=== PATIENT | female | born 1995 | race Caucasian/White ===

== ENCOUNTER 2019-09-10 18:31 | Emergency (ER) | payer OTHER, SELFPAY ==
[2019-09-10 18:45] VITALS: BP 129/80; PULSE 100; RESP 16; TEMP 36.5; O2SAT 99
--- NOTE | 2019-09-10 18:58 | ED.URI ---
HPI - URI/Sore Throat General Chief Complaint: Upper Respiratory Infection Stated Complaint: sore throat, ear pain Time Seen by Provider: 09/10/19 18:58 Source: patient Mode of arrival: ambulatory Limitations: no limitations History of Present Illness HPI Narrative: Jayda Armando is a 23 yo female with PMH of PCOS, high cholesterol, comes to express care with sore throat and fever last week, no fever since Tuesday. Has not responded to ibuprofen, mucinex, and fall and has been able to swallow and drink fluids Related Data Allergies Allergy/AdvReac Type Severity Reaction Status Date / Time metformin Allergy Unknown Verified 11/17/17 08:12 No Known Allergies Allergy Unknown Verified 08/12/16 12:36 Review of Systems Review of Systems: Narrative: CONSTITUTIONAL: Denies fever, chills, sweats. EYES: Denies visual changes, redness, discharge. ENT: Denies rhinorrhea, congestion, has sore throat, has right otalgia. CARDIOVASCULAR: Denies chest pain, palpitations, edema. RESPIRATORY: Denies dyspnea, wheezing, cough GASTROINTESTINAL: Denies abdominal pain, nausea, vomiting, diarrhea. GENITOURINARY: Denies dysuria, hematuria, abnormal discharge SKIN: Denies rash or itching. NEUROLOGIC: Denies numbness, or focal weakness. PSYCHIATRIC: Denies anxiety or depression. PMFSH Family History Family History Sibling Family history of mental disorder Patient's sister is in good health Patient's brother is in good health Father Depression Family history of elevated blood lipids Family history of hypercholesterolemia Mother Hypertension Grandparent Hypertension Family history of elevated blood lipids Family history of dementia, Onset Age: 87 Family history of renal failure Family history of hypercholesterolemia Family history of primary malignant neoplasm of liver Family history of congestive heart failure Family history of osteoporosis Family history of osteoarthritis Social History Social History Smoking status: Never smoker Second hand tobacco smoke exposure: No Alcohol intake: never Gender identity (if verbalized by the patient): Female Comments At time of signature, I agree with nursing past medical, surgical, social and family history. There is no relevant family history pertinent to the presenting complaint. Exam Narrative: Exam Narrative: GENERAL: This is a well-nourished, well-developed patient, in moderate distress. HEAD: normocephalic, atraumatic. EYES: Sclera clear/white. Vision is grossly intact. EARS: External ears normal, L auditory canal clear and without drainage, R is reddened with fluid behind TM. Hearing grossly intact. NOSE: External nose normal without nasal discharge, nares without redness, no rhinorrhea. THROAT: Mucous membranes moist, posterior pharynx eruythema, exudate on L NECK: Neck supple, non-tender CARDIOVASCULAR: Regular rate and rhythm without murmurs, gallops, or rubs. RESPIRATORY: Clear to auscultation. Breath sounds equal bilaterally. No wheezes, rales, or rhonchi. GASTROINTESTINAL: Abdomen soft, SKIN: warm, intact with no suspicious lesions or rash, good texture and turgor. NEURO: awake, alert, and oriented to person, place and time. There were no obvious focal neurologic abnormalities. Steady gait EXTREMITIES: Normal range of motion. BACK: Nontender without deformity Course Course Emergency Course: Strep test negative Started on amoxicillin and eardrops, prednisone for tonsillar edema Vital Signs Vital signs: Vital Signs Temperature 97.7 F 09/10/19 18:45 Pulse Rate 100 09/10/19 18:45 Respiratory Rate 16 09/10/19 18:45 Blood Pressure 129/80 09/10/19 18:45 Pulse Oximetry 99 09/10/19 18:45 Temperature 97.7 F 09/10/19 18:45 Pulse Rate 100 09/10/19 18:45 Respiratory Rate 16 09/10/19 18:45 Blood Pressure 129/80 09/10/19 18
== END 2019-09-10 19:26 | disposition home or self-care (01) ==
PROVIDERS: Emergency Provider Nurse Practitioner; PCP Internal Medicine
DX: J02.9 Acute pharyngitis, unspecified (principal); E28.2 Polycystic ovarian syndrome; E78.00 Pure hypercholesterolemia, unspecified
CPT/HCPCS: 87081; 87880; 99213; G0463

== ENCOUNTER 2019-12-28 08:08 | Emergency (ER) | payer OTHER, SELFPAY ==
[2019-12-28 08:16] VITALS: BP 138/79; PULSE 93; RESP 14; TEMP 36.4; O2SAT 100
--- NOTE | 2019-12-28 08:49 | ED.URI ---
HPI - URI/Sore Throat General Chief Complaint: Upper Respiratory Infection Stated Complaint: tonsilitis Time Seen by Provider: 12/28/19 08:24 Source: patient and RN notes reviewed Mode of arrival: ambulatory Limitations: no limitations History of Present Illness HPI Narrative: Patient presents today with a one-week history of sore throat and cough. The cough is occasionally productive, mild, and has been improving since onset. Denies shortness of breath, fever, difficulty swallowing. She is currently pain-free. She has been taking Mucinex with some relief. She has not tried any other medications for her symptoms prior to arrival. Denies known COVID-19 exposure. 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 Declines influenza test or COVID-19. MD elicited complaint: sore throat Related Data Home Medications Medication Instructions Recorded Confirmed No Home Medications 12/28/19 12/28/19 Allergies Allergy/AdvReac Type Severity Reaction Status Date / Time metformin Allergy Unknown Diarrhea Verified 12/28/19 08:16 Review of Systems Review of Systems: Narrative: CONSTITUTIONAL: Denies body aches, fever, chills, or sweats. EYES: Denies visual changes, redness, or discharge. ENT: Denies rhinorrhea, congestion, or otalgia. + Sore throat CARDIOVASCULAR: Denies chest pain, palpitations, or edema. RESPIRATORY: Denies dyspnea.+ Cough GASTROINTESTINAL: Denies abdominal pain, nausea, vomiting, or diarrhea. GENITOURINARY: Denies dysuria or hematuria. SKIN: Denies rash, itching, or wounds. MUSCULOSKELETAL: Denies back pain, joint pain, or myalgia. NEUROLOGIC: Denies headache, numbness, tingling, or weakness. PSYCH: Denies depression or anxiety. [facility] Family History Family History Sibling Family history of mental disorder Patient's sister is in good health Patient's brother is in good health Father Depression Family history of elevated blood lipids Family history of hypercholesterolemia Mother Hypertension Grandparent Hypertension Family history of elevated blood lipids Family history of dementia, Onset Age: 87 Family history of renal failure Family history of hypercholesterolemia Family history of primary malignant neoplasm of liver Family history of congestive heart failure Family history of osteoporosis Family history of osteoarthritis Social History Social History (Reviewed 11/27/19 @ 10:09 by CISCO Cason Smoking status: Never smoker Second hand tobacco smoke exposure: No Alcohol intake: never Gender identity (if verbalized by the patient): Female Comments At time of signature, I have reviewed and agree with nursing past medical, surgical, social and family history unless otherwise noted. Please see nursing chart for further information. There is no relevant family history pertinent to the presenting complaint Exam Narrative: Exam Narrative: GENERAL: Well-appearing, well-nourished, and in no acute distress. HEAD: Normocephalic, atraumatic. EYES: EOMI. No redness or drainage. Conjunctivae normal. ENT: Mucous membranes pink and moist. Nares clear. No rhinorrhea. TMs normal bilaterally. Throat mildly erythematous. Small amount of exudate on right tonsil. Small amount of postnasal drainage. Uvula midline. NECK: Normal AROM. Supple. No lymphadenopathy. CHEST: No respiratory distress. Clear to auscultation. HEART: Regular rate and rhythm. No murmur appreciated. Normal peripheral pulses. EXTREMITIES: Normal range of motion. No edema. SKIN: Warm, dry, no rash. Capillary refill normal. Normal skin turgor. NEURO: No focal deficits. Alert and oriented x3. Gait steady. PSYCH: Normal affect. No signs of depression or anxiety. Course Vital Signs Vital signs: Vital Signs Temperature 97.6 F 12/28/19 08:16 Pulse Rate 93 12/28/19 08:16 Respiratory Rate 14
== END 2019-12-28 09:13 | disposition home or self-care (01) ==
PROVIDERS: Emergency Provider Nurse Practitioner; PCP Internal Medicine
DX: J02.8 Acute pharyngitis due to other specified organisms (principal)
CPT/HCPCS: 87081; 87880; 99213; G0463

== ENCOUNTER → 2020-11-19 10:55 | Outpatient (CLI) | payer OTHER, SELFPAY ==
--- NOTE | ~2020-11-19 | US_ITS ---
EXAMINATION: US pelvic complete w TV DATE: 11/19/2020 11:22 INDICATION: Pelvic and perineal pain TECHNIQUE: Multiple transabdominal and endovaginal sonographic images of the pelvis were obtained. COMPARISON: 10/28/2015 FINDINGS: The uterus measures 8.1 x 4.1 x 5.8 cm. Nabothian cysts are noted in the cervix. The endome trial complex measures 8 mm. The right ovary measures 3.1 x 2.1 x 3.8 cm. The left ovary measures 3.2 x 3.0 x 2.5 cm. There is normal vascular flow in the ovaries. There is no free fluid in the pelvis. IMPRESSION: 1. No sonographic correlate for the patient's symptoms. Reviewed, dictated and finalized at location A.
== END ==
PROVIDERS: Visit Provider Obstetrics & Gynecology
DX: R10.2 Pelvic and perineal pain (principal)
CPT/HCPCS: 76830; 76856

== ENCOUNTER 2021-02-09 08:30 | Outpatient (RCR) | payer OTHER, SELFPAY ==
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
--- NOTE | 2021-01-27 14:38 | PCPTNOTE ---
Patient called leaving a voicemail to cancel scheduled appointment this date no reason given.
--- NOTE | 2021-02-09 09:12 | PTOPEVAL ---
Physical Therapy Discharge Summar Thank you for referring Jayda Armando to [facility] [place] [facility].? Jayda has attended 7 therapy visits to address her left LE impairments. She demonstrates indep with her HEP at this time. Her goals are partially achieved. See objective measures below for summary of progress. She will DC from skilled therapy services at this time. Please review, sign, date and return this discharge summary GASTON. I agree with and certify that the following plan of care is medically necessary. Referring Physician Date Attending Provider: Mihir Martinez PA-C Problem Diagnosis left lower leg muscle spasm Onset 13 yrs Cause burn Subjective Information She reports her pain has Query Text:As Reported By Patient/ improved with improved Family tightness of left lower leg/ ankle region. She reports improved ability to perform walking with improved walking speed. She is performing HEP every other day. She is not consistently performing a walking or fitness program. Pain Assessment Self Report Pain Assessment Left Lower Lateral Leg(s) Reported Pain Level 0 Pain Description Burning,Tightness Lowest Pain Intensity 0 Greatest Pain Intensity 4 Ankle/Foot Range of Motion Left Ankle Dorsiflexion With Knee Extension 0 active Ankle Plantarflexion Range of Motion - 60 active Ankle Eversion Range of Motion - Active 15 Ankle Eversion Range of Motion - Passive 20 Ankle Inversion Range of Motion - Active 30 Ankle/Toe Range of Motion Limitations Soft Tissue Restriction Foot/Toe Range of Motion Comments great toe ext: 52 dg Lower Extremity Muscle Strength Testing General Lower Extremity Strength Gross Lower Extremity Strength anabella hip abduction: 4/5 heel raises: 15 reps left and 15 reps right Special Tests-Lower Extremity Hip Special Tests Hip Special Test Comments single leg stance: 30 sec anabella with proper control functional squat: improved with cues, able to weight posterior with full range if low mat used for tactile cues. Demo proper LE control with increased trunk flex sit<>stand; = LE WB and position Gait Assessment Gait Pattern Assessment Gait Pattern Observed Decreased Stride Length - Left ,Decreased Stride Length - Right,No Heel Strike - Left,No
== END 2021-02-10 09:20 | disposition home or self-care (01) ==
LOC: ANHPT 08:30
PROVIDERS: Visit Provider Physician Assistant
DX: M62.838 Other muscle spasm (principal)
CPT/HCPCS: 97014; 97110; 97140; 97162; 97530; G0283

== ENCOUNTER 2021-02-27 17:33 | Emergency (ER) | payer OTHER, SELFPAY ==
--- NOTE | ~2021-02-27 | CT_ITS ---
EXAMINATION: CT abdomen pelvis w con EXAM DATE: 02/27/2021 21:27 INDICATION: Abdominal pain. TECHNIQUE: Spiral CT of the abdomen and pelvis was performed following intravenous injection of 100 m L Omnipaque 350. Axial, coronal and sagittal images of the abdomen and pelvis were reviewed. The do se-length product (DLP) for this examination was 1668.12 mGy-cm. The exposure was tailored according to patient size (auto mA exposure control), and iterative reconstruction (ASIR) was used as addition al dose reduction technique. There is no prior study for comparison. FINDINGS: The liver, spleen, adrenal glands and pancreas are unremarkable. Gallbladder is unremarkab le. No biliary obstruction. Portal and splenic veins are patent. Kidneys enhance symmetrically. T here is no hydronephrosis. The uterus and ovaries are unremarkable, no adnexal mass. The bladder i s unremarkable. There is no retroperitoneal or pelvic lymphadenopathy. The appendix is normal. The stomach and small bowel are unremarkable. There is expected amount of c olonic stool. No free intraperitoneal gas. The heart is normal in size. There are no pericardial or pleural effusions. The lung bases are unremarkable. 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 IMPRESSION: 1. No acute intra-abdominal findings. Reviewed, dictated and finalized at location A. SURANCE CLERK
[2021-02-27 17:36] VITALS: BP 149/89; PULSE 135; RESP 20; TEMP 36; O2SAT 100
--- NOTE | 2021-02-27 20:04 | ED.ABDPAIN ---
HPI - Abdominal Pain General Chief Complaint: Abdominal Pain Stated Complaint: LUQ abd pain, nausea Time Seen by Provider: 02/27/21 19:58 Source: RN notes reviewed History of Present Illness HPI narrative: Patient presents emergency room from home for abdominal pain. Patient states since began yesterday. Pain is located left upper abdomen described as aching and sharp in nature. States the pain does not radiate. States is associate with nausea vomiting. She denies any diarrhea she denies any fevers or chills chest pain or shortness of breath. States she not taking pain medic today for the Related Data Home Medications Medication Instructions Recorded Confirmed cholecalciferol (vitamin D3) 25 25 mcg PO DAILY 10/29/20 01/26/21 mcg (1,000 unit) capsule multivitamin 1 tablet PO DAILY 10/29/20 01/26/21 Allergies Allergy/AdvReac Type Severity Reaction Status Date / Time metformin Allergy Unknown Diarrhea Verified 01/22/21 13:03 Review of Systems Review of Systems: Gen.: Denies fevers or chills ENT: Denies congestion Respiratory: Denies shortness of breath or cough CV: Denies chest pain or palpitations GI: See HPI Musculoskeletal: Denies back pain or muscle pain Neuro: Denies numbness, tingling, weakness or focal weakness Skin: Denies rash Except as documented, all other systems reviewed and negative PMFSH Past Medical History Medical History High cholesterol Obesity PCOS (polycystic ovarian syndrome) Surgical History Surgical History [place] teeth removed Family History Family History Sibling Family history of mental disorder Patient's sister is in good health Patient's brother is in good health Father Depression Family history of elevated blood lipids Family history of hypercholesterolemia Mother Hypertension Grandparent Hypertension Family history of elevated blood lipids Family history of dementia, Onset Age: 87 Family history of renal failure Family history of hypercholesterolemia Family history of primary malignant neoplasm of liver Family history of congestive heart failure Family history of osteoporosis Family history of osteoarthritis Social History Social History Smoking status: Never smoker Second hand tobacco smoke exposure: No Alcohol intake: never Gender identity (if verbalized by the patient): Female Exam Narrative: APPEARANCE: No acute distress, nontoxic, resting in bed HEENT: Normocephalic, atraumatic, OMM RESPIRATORY: No respiratory distress, clear to auscultation bilaterally with no rhonchi wheezing or rales CARDIOVASCULAR: RRR s murmur ABDOMINAL: Soft nondistended tender palpation epigastric and left upper quadrant no tenderness right upper quadrant or right lower quadrant left lower quadrant no rebound or guarding MUSCULOSKELETAl: Moves all extremities. No clubbing, cyanosis or edema. NEURO: Awake and alert. Following commands, speech normal, no focal deficits SKIN:: Warm, dry. Normal Color PSYCHIATRIC: Normal affect/mood Course Course Emergency Course: Patient states that they are feeling much better at this time. States abdominal pain has r improved repeat abdominal exam shows the patient's abdomen to be soft with no surgical abdomen present discussed with patient results of workup and diagnosis. Discussed need for follow-up with primary care physician, reasons to return to the emergency department in proper use of medication. Patient understands and agrees to current treatment plan. We discussed possibility of peptic ulcer disease need for follow-up with GI Vital Signs Vital signs: Vital Signs Temperature 96.8 F L 02/27/21 17:36 Pulse Rate 135 H 02/27/21 17:36 Respiratory Rate 20 02/27/21 17:36 Blood Pressure 149/89 H
[2021-02-27] MEDS: KETOROLAC 30 MG/ML VIAL (*BKC) IV PUSH (20:14)
[2021-02-27] MEDS: SODIUM CHLORIDE 0.9% IV 1,000 ML 999 ML IV CONT (20:14)
[2021-02-27] MEDS: FAMOTIDINE 20 MG/2 ML VIAL IV PUSH (20:15)
[2021-02-27 20:31] LABS: Basophils Absolute Auto 0.1 K/mm3 (0.0-0.1); Basophils Percent Auto 0.8 % (0.2-1.2); Eosinophils Absolute Auto 0.2 K/mm3 (0-0.3); Hemoglobin 13.8 g/dL (12.0-15.0); Immature Granulocyte Absolute 0.05 K/mm3 (0.00-0.031); Immature Granulocyte Percent A 0.3 % (0-0.5); Lymphocytes Absolute Auto 5.04 K/mm3 (0.9-3.2); Lymphocytes Percent Auto 32.7 % (18.3-44.2); Mean Corpuscular HGB Conc 32.9 g/dl (32-36); Mean Corpuscular Hemoglobin 28.5 pg (26-34); Mean Corpuscular Volume 86.6 fl (80-100); Mean Platelet Volume 9.3 fl (7.4-10.4); Monocytes Percent Auto 6.7 % (2.6-8.5); Neutrophils Percent Auto 58.5 % (45.5-73.1); Platelet Count Result 358 k/mm3 (150-375); Red Blood Count 4.85 M/mm3 (4.2-5.4); Red Cell Distribution Width 13.5 % (11.5-14.5); White Blood Count 15.4 K/mm3 (4.5-10.0)
[2021-02-27 20:37] LABS: Alanine Aminotransferase 25 U/L (4-35); Albumin Level 4.7 g/dL (3.5-5.1); Alkaline Phosphatase 64 U/L (38-126); Anion Gap 11 mmol/L (8-16); Aspartate Amino Transferase 28 U/L (14-36); Bilirubin,Total 0.3 mg/dL (0.2-1.3); Blood Urea Nitrogen 11 mg/dL (7-17); Calcium 9.5 mg/dL (8.4-10.2); Carbon Dioxide 22 mmol/L (22-30); Chloride 104 mmol/L (98-107); Estimated CRCL calculation 148 ml/min; Estimated Glomerular Filt Rate > 60; Glucose 95 mg/dL (65-110); Lipase 65 U/L (23-300); Sodium 137 mmol/L (137-145)
[2021-02-27 20:38] LABS: Add Urine Microscopic? YES; Appearance Urine Cloudy (Clear); Bacteria Urine Trace /hpf; Bilirubin Urine Negative (Negative); Blood Urine Negative (Negative); Color Urine Yellow (Yellow); Glucose Urine UA Negative (Negative); Ketones Urine Negative (Negative); Leukocyte Esterase Ur Trace LEU/UL (Negative); Mucus Urine Rare /lpf; Nitrate Urine Negative (Negative); Protein Urine Negative (Negative); RBC Urine 21-50 /hpf (0-2); Specific Grav Ur 1.024 (1.001-1.035); Squamous Epithelial Cell Urine Moderate /hpf (Few); Urobilinogen Urine Negative mg/dL (<2.0)
[2021-02-27] MEDS: PANTOPRAZOLE SODIUM IV 40 MG VIAL IV PUSH (21:56)
[2021-02-27] MEDS: NITROFURANTOIN MONOHYD MACROCR 100 MG CAP PO (21:59)
[2021-02-27 22:01] VITALS: BP 138/76; PULSE 78; RESP 18; O2SAT 99
== END 2021-02-27 22:03 | disposition home or self-care (01) ==
PROVIDERS: Emergency Provider Emergency Medicine; PCP Internal Medicine
DX: R10.12 Left upper quadrant pain (principal); E78.00 Pure hypercholesterolemia, unspecified; E66.9 Obesity, unspecified; Z68.41 Body mass index [BMI] 40.0-44.9, adult; E28.2 Polycystic ovarian syndrome
CPT/HCPCS: 36415; 74177; 80053; 81001; 81025; 83690; 85025; 96361; 96374; 96375; 99284; A9270; C9113; J1885; J7030; Q9967

== ENCOUNTER 2021-04-28 00:15 | Day surgery (SDC) | payer BC, SELFPAY ==
[2021-04-16 12:43] VITALS: BMI 43.2
[2021-04-28 09:20] VITALS: BP 135/83; PULSE 108; RESP 20; TEMP 36.9; O2SAT 100; BMI 43.2
[2021-04-28] MEDS: LACTATED RINGERS 1,000 ML 150 ML IV CONT (09:33)
--- NOTE | 2021-04-28 09:54 | PM.HPGS ---
History of Present Illness History of Present Illness Consent: Risks, benefits, and alternatives have been discussed and questions answered. Patient agrees to proceed with procedure. Chief complaint: Left upper quadrant pain Narrative: Jayda Armando is a 25 year old female with luq pain for last couple of months, took protonix for 2 weeks with some relief. She was taking nsaid's but discontinued, occasionally using pepto. CT scan a/p negative. Review of Systems Constitutional: Constitutional: Denies headache(s) and Denies weakness Eyes: Eyes: Denies blurry vision ENT: Reports Normal hearing present, Denies headache(s) and Denies neck pain Cardiovascular: Cardiovascular: Denies chest pain and Denies dyspnea Respiratory: Respiratory: Denies dyspnea Gastrointestinal: Gastrointestinal: Reports no additional gastrointestinal complaints Genitourinary: Genitourinary: Denies dysuria Musculoskeletal: Musculoskeletal: Denies neck pain Integumentary/Breasts: Skin/Breast: Denies dry skin Neurologic: Reports Normal hearing present, Denies headache(s) and Denies weakness Psychiatric: Psychiatric: Denies anxiety Endocrine: Endocrine: Denies change in body appearance Hematologic/Lymphatic: Hematologic/Lymphatic: Denies easy bleeding Allergic/Immunologic: Allergic/Immunologic: Denies urticaria PMFSH Past Medical History Medical History High cholesterol Obesity PCOS (polycystic ovarian syndrome) Surgical History Surgical History [place] teeth removed Family History Family History Sibling Family history of mental disorder Patient's sister is in good health Patient's brother is in good health Father Depression Family history of elevated blood lipids Family history of hypercholesterolemia Mother Hypertension Grandparent Hypertension Family history of elevated blood lipids Family history of dementia, Onset Age: 87 Family history of renal failure Family history of hypercholesterolemia Family history of primary malignant neoplasm of liver Family history of congestive heart failure Family history of osteoporosis Family history of osteoarthritis Social History Social History Smoking status: Never smoker Second hand tobacco smoke exposure: No Alcohol intake: never Substance use type: does not use Living arrangements: with family Gender identity (if verbalized by the patient): Female Spiritual care concerns: No Meds Home Medications and Allergies Home Medications Medication Instructions Recorded Confirmed Type cholecalciferol (vitamin D3) 25 25 mcg PO DAILY 10/29/20 04/28/21 History mcg (1,000 unit) capsule multivitamin 1 tablet PO DAILY 10/29/20 04/28/21 History norethindrone acetate 1 mg-ethinyl 1 tablet PO DAILY #84 tablet 01/22/21 04/28/21 Rx estradiol 20 mcg tablet rosuvastatin 10 mg tablet 10 mg PO DAILY #90 tablet 04/27/21 04/28/21 Rx Allergies Allergy/AdvReac Type Severity Reaction Status Date / Time metformin AdvReac Unknown Diarrhea Verified 04/16/21 12:46 Vital Signs Vital Signs - 24 hr 04/28/21 09:20 Temperature 98.5 F Pulse Rate 108 H Respiratory Rate 20 Blood Pressure 135/83 Pulse Oximetry 100 Exam Const: General: comfortable and no acute distress HENMT: General nose exam: Normal nares present Eyes: General: appearance normal, both eyes and all related structures Neck: Neck: no JVD Resp: Auscultation: clear to auscultation bilaterally Cardio: Rate: regular rate Rhythm: regular rhythm GI: Inspection: non-distended GI Palp: Yes Soft to palpation Skin: General skin exam: normal color Neuro: General: gait normal Speech: normal speech Extrem: General: normal to inspection Psych: Mental Status: me
--- NOTE | 2021-04-28 09:57 | WPDANESEPPF ---
Anes - Initial Pre Proc Eval Procedure: Operation Date: 04/28/21 10:30 Proposed Procedures p Esophagogastroduodenoscopy - Logan Minaya MD Date/Time: 04/28/21 09:57 Surgeon: Logan Minaya MD Pre Op Diagnosis: Left upper quadrant pain Patient Data Age: 25 Gender: F Height: 1.73 m Weight: 128.8 kg Last Vital Signs Temp 98.5 F 04/28/21 09:20 Pulse 108 H 04/28/21 09:20 Resp 20 04/28/21 09:20 BP 135/83 04/28/21 09:20 Pulse Ox 100 04/28/21 09:20 Allergies Allergy/AdvReac Type Severity Reaction Status Date / Time metformin AdvReac Unknown Diarrhea Verified 04/16/21 12:46 Home Medications Medication Instructions Recorded Confirmed Type cholecalciferol (vitamin D3) 25 25 mcg PO DAILY 10/29/20 04/28/21 History mcg (1,000 unit) capsule multivitamin 1 tablet PO DAILY 10/29/20 04/28/21 History norethindrone acetate 1 mg-ethinyl 1 tablet PO DAILY #84 tablet 01/22/21 04/28/21 Rx estradiol 20 mcg tablet rosuvastatin 10 mg tablet 10 mg PO DAILY #90 tablet 04/27/21 04/28/21 Rx Patient hx anesthesia problems: none Family hx anesthesia problems: none Results Review: All pre-operative results and documents have been reviewed as part of the pre-operative evaluation. ON LICENSE OF [facility] Past Medical History Medical History High cholesterol Obesity PCOS (polycystic ovarian syndrome) Surgical History Surgical History [place] teeth removed Family History Family History Sibling Family history of mental disorder Patient's sister is in good health Patient's brother is in good health Father Depression Family history of elevated blood lipids Family history of hypercholesterolemia Mother Hypertension Grandparent Hypertension Family history of elevated blood lipids Family history of dementia, Onset Age: 87 Family history of renal failure Family history of hypercholesterolemia Family history of primary malignant neoplasm of liver Family history of congestive heart failure Family history of osteoporosis Family history of osteoarthritis Social History Social History Smoking status: Never smoker Second hand tobacco smoke exposure: No Alcohol intake: never Substance use type: does not use Living arrangements: with family Gender identity (if verbalized by the patient): Female Spiritual care concerns: No Anes - Eval Final PreProcedure Day of Procedure 04/28/21 09:57 Patient weight: morbidly obese Heart: regular rate and rhythm Lungs: clear to auscultation Airway: Mallampati scale class II Neurological: alert and oriented Last oral intake: >/= 8 hours ASA classification: III Emergent: no Anesthetic plan: proceed Anesthesia type and monitoring: general GIVS and standard monitoring Results Review: All pre-operative results and documents have been reviewed as part of the pre-operative evaluation. Informed Consent: The patient's anesthetic plan and its attendant risks and benefits were discussed with the patient/family/POA. Questions were solicited and answers provided to the satisfaction of the patient/family/POA.
[2021-04-28] MEDS: BENZOCAINE (*SP) 60 ML SPRAY CAN (HURRICAINE) 1 SPRAY MUCOUS MEM (09:59)
[2021-04-28 10:11] VITALS: BP 131/97; PULSE 99; RESP 19; O2SAT 99
[2021-04-28 10:21] VITALS: BP 136/90; PULSE 82; RESP 18; O2SAT 100
[2021-04-28 10:31] VITALS: BP 142/101; PULSE 78; RESP 25; O2SAT 100
== END 2021-04-28 10:43 | disposition home or self-care (01) ==
PROVIDERS: PCP Internal Medicine; Visit Provider Internal Medicine Gastroenterology
PROC: 0DJ08ZZ Inspection of Upper Intestinal Tract, Via Natural or Artificial Opening Endoscopic (ICD-10-PCS; CPT 43235; principal; 2021-04-28 10:30)
DX: R10.12 Left upper quadrant pain (principal); K44.9 Diaphragmatic hernia without obstruction or gangrene; E78.00 Pure hypercholesterolemia, unspecified; E28.2 Polycystic ovarian syndrome; E66.01 Morbid (severe) obesity due to excess calories; Z68.41 Body mass index [BMI] 40.0-44.9, adult
CPT/HCPCS: 43239; 88305; J2704; J7120

== ENCOUNTER 2022-05-13 08:00 | Outpatient (RCR) | payer BC, SELFPAY ==
--- NOTE | 2022-03-03 11:20 | PTOPEVAL1 ---
Assessment and note entered by Milo Kolb PT These treatments will address the objective and functional deficits as defined above. The patient will be advanced safely and appropriately in order for the patient to progress towards his/her prior level of function. Additional exercises will be introduced and as well as a comprehensive home exercise program upon discharge, if needed, ?to ensure carryover of functional gains achieved in the clinic. This treatment plan has been reviewed and agreement upon by the patient.
--- NOTE | 2022-03-03 12:29 | PTOPEVAL1 ---
Assessment and note entered by Milo Kolb, PT Evaluation Information Diagnosis R hip pain with radiating symptoms Onset 2015 Subjective Information Jayda reports that in 2016 she had a pinched nerve that was caused while swimming, since then she has had recurrent exacerbations that will go from her hip up to her back and down to the mid cruz. She did see a hip specialist when it first happened and did not give according to her a specific diagnosis, but reports the R hip has a small acetabular head than the L side. She reports some days she will be fine and some days she will be unable to stand for more than a couple minutes. She does not recall any specific triggers to cause the pain to start. Reported Pain Level Pain Score 0: Self Report Assessment PT Clinical Summary Jayda is a 26 year old female coming into the clinic with intermittent R hip pain. Patient has tight JENNIFER piriformis and weak hip abductors and extensors. The tight piriformis might be pressing on the sciatic nerve causing the radiating symptoms. I think the patient will benefit from skilled physical therapy to stretch out her piriformis and strengthen other hip musculature to help keep the hip joint in better alignments Plan of Care Interventions Electrical Stimulation,Gait Training,Hot Pack/Cold Pack,Manual Therapy,Neuro Re-education,Patient/ Caregiver Education,Therapeutic Activities, Therapeutic Exercise,Ultrasound PT Services Indicated Yes Treatment Frequency and 1x/wk for 4 weeks Duration These treatments will address the objective and functional deficits as defined above. The patient will be advanced safely and appropriately in order for the patient to progress towards his/her prior level of function. Additional exercises will be introduced and as well as a comprehensive home exercise program upon discharge, if needed, ?to ensure carryover of functional gains achieved in the clinic. This treatment plan has been reviewed and agreement upon by the patient.
--- NOTE | 2022-04-15 19:14 | PTOPREEVAL ---
Assessment and note entered by Milo Kolb, PT Evaluation Information Assessment Status Re-evaluation Diagnosis Calcific tendinitis of the L shoulder Onset 3 years ago Subjective Information Patient reports the R hip pain has substantially improved and know she has a new script for the L shoulder. She reports she has been having issues with the L shoulder for three years. Especially painful lying on that side when trying to sleep and pain in the back of the shoulder and along the upper trap. Clinical summary Jayda is a 26 year old female coming in originally for R hip pain, which she reports has improved greatly. She has a new script for L shoulder pain. Her shoulder appears to have a tight posterior capsule along with weakness and pain in the rotator cuff with MMT. Physical therapy will focus on the L shoulder pain and leave the hip for her HEP. Physical therapy will work on strengthening of her shoulder and scapula to improve posture and stretching of posterior capsule to improve movement. Modalities and manual therapy as needed for pain. These treatments will address the objective and functional deficits as defined above. The patient will be advanced safely and appropriately in order for the patient to progress towards his/her prior level of function. Additional exercises will be introduced and as well as a comprehensive home exercise program upon discharge, if needed, ?to ensure carryover of functional gains achieved in the clinic. This treatment plan has been reviewed and agreement upon by the patient.
--- NOTE | 2022-05-13 11:01 | PTOPDC ---
Assessment and note entered by Milo Kolb, PT Evaluation Information Assessment Status Discharge Diagnosis Calcific tendinitis of the L shoulder Onset 3 years ago Subjective Information Patient reports that she is still having pain in the L shoulder mainly around the spine of her scapula, her biceps and below the clavicle. She does report it is worst with reaching overhead, and sleeping on her L side. Patient does admit to increased range of motion and strength. Has an orthopedic appointment in 2 weeks. Reported Pain Level Pain Score 4: Self Report Assessment PT Clinical Summary Jayda is a 26 year old female coming to the clinic for L shoulder pain. She has shown improved strength, but still has severe pain in the L shoulder. Patient is seeing her orthopedic doctor in 2 weeks and getting an injection. Recommend to discharge for now with HEP and have the orthopedic doctor give the injection and possible MRI then write for new orders to work on scapular and rotator cuff strengthening after the injection for reduced pain with physical therapy. Plan of Care PT Services Indicated No Treatment Frequency and discharged from skilled physical therapy. Duration
== END 2022-05-13 11:45 | disposition home or self-care (01) ==
LOC: ANHPT 08:00
PROVIDERS: PCP Internal Medicine; Visit Provider Internal Medicine
DX: M54.9 Dorsalgia, unspecified (principal); R20.0 Anesthesia of skin
CPT/HCPCS: 97014; 97110; 97140; 97161; 97530; G0283

== ENCOUNTER 2022-05-24 17:55 | Outpatient (CLI) | payer BC, SELFPAY ==
--- NOTE | ~2022-05-24 | CT_ITS ---
EXAMINATION: CT abdomen pelvis wo con DATE: 05/24/2022 18:17 INDICATION: Left lower quadrant abdominal pain since December 2021 TECHNIQUE: Computed tomography (CT) of the abdomen and pelvis was performed without intravenous contr ast. Automated exposure control and iterative reconstruction technique were employed. Exam dose: 151 6.44 mGy-cm total exam DLP. COMPARISON: 02/27/2021 CT abdomen pelvis FINDINGS: The lung bases are clear. Normal heart size. No pericardial or pleural effusion. The liver, gallbladder, bile ducts, pancreas, pancreatic duct and spleen are unremarkable. Normal morphology of the adrenal glands. No renal mass lesion or urinary tract calculus or hydroureteronephrosis. The urinary bladder, uterus and adnexal areas are unremarkable. Normal caliber of the abdominal aorta. No intraperitoneal or retroperitoneal or pelvic mass lesion or adenopathy or ascites. Normal appendix. No bowel obstruction, bowel wall thickening, pneumatosis or intraperitoneal free air . There are bilateral L4 pars interarticularis defects with grade 1 anterolisthesis at L4-5. Moderate degenerative disc disease at L4-5 and L5-S1. Mild degenerative spurring of the thoracic spin e. No suspicious osteolytic or osteoblastic lesions. IMPRESSION: Bilateral L4 pars interarticularis defects with associated grade 1 anterolisthesis at L4 -5 Reviewed, dictated and finalized at [facility]. Reviewed, dictated and finalized at [facility]. SERVICER IMPRESSION: Bilateral L4 pars interarticularis defects with associated grade 1 anterolisthesis at L4-5
== END 2022-05-24 17:56 | disposition home or self-care (01) ==
PROVIDERS: PCP Internal Medicine; Visit Provider Physician Assistant
DX: R10.9 Unspecified abdominal pain (principal)
CPT/HCPCS: 74176

== ENCOUNTER 2022-08-04 11:00 | Outpatient (RCR) | payer BC, SELFPAY ==
--- NOTE | 2022-06-10 16:58 | PTOPEVAL1 ---
Assessment and note entered by Milo Kolb, PT Evaluation Information Assessment Status Evaluation Diagnosis R shoulder pain Subjective Information Patient has been coming to therapy for L ankle, R hip, L shoulder pain prior to the R shoulder and has had JENNIFER injections in both shoulder which she reports was great for a few days, but on Tuesday she went to a football game and with all of the clapping has increased pain on the R side. She reports she is still having trouble with sleeping and has been doing her exercises, but she has so many to do right now that she needs a more concise session in order to do them. Still trying to work on posture throughout the day. Assessment PT Clinical Summary Jayda is a 26 year old female coming into the clinic for JENNIFER shoulder pain, which she reports post injection is just the R shoulder. She has rounded shoulders, forward head, tight upper traps , levator scapulae, and pectoralis major. shoulder range of motion is WFL as is strength, but does have weak scapular strength. Physical therapy will work on getting the shoulders in better alignment with stretches and scapular strengthening. Modalities and manual therapy used as needed for pain. Plan of Care Interventions Electrical Stimulation,Gait Training,Hot Pack/Cold Pack,Manual Therapy,Neuro Re-education,Patient/ Caregiver Education,Therapeutic Activities, Therapeutic Exercise,Ultrasound Other Interventions taping, cupping PT Services Indicated Yes Treatment Frequency and 1-2x/wk for 4 weeks Duration These treatments will address the objective and functional deficits as defined above. The patient will be advanced safely and appropriately in order for the patient to progress towards his/her prior level of function. Additional exercises will be introduced and as well as a comprehensive home exercise program upon discharge, if needed, ?to ensure carryover of functional gains achieved in the clinic. This treatment plan has been reviewed and agreement upon by the patient.
--- NOTE | 2022-06-28 09:49 | PCPTNOTE ---
Patient called & cancelled scheduled appointment this date due to not feeling well.
--- NOTE | 2022-07-07 10:49 | PTOPPROG ---
Assessment and note entered by Milo Kolb, PT Evaluation Information Assessment Status Progress Diagnosis L shoulder pain Subjective Information Reports improvement in over all symptoms, but unable to lie on her L side to sleep. Has an HEP that is more concise to allow for continued working on the L ankle and R hip. Assessment PT Clinical Summary Jayda is a 26 year old female coming into the clinic with a diagnosis of L shoulder calcification tendonitis. She was evaluated on 06/09/22 and has attended 7 sessions with 1 cancelation. Patient has made improvements with scapular strengthening besides L lower traps, decreased tightness in upper traps, but not pecs, and reports decrease in pain, but still unable to lie on her L side when attempting to sleep. Would like to continue to work on stretching and strengthening until her next MD appointment in the beginning of July. Plan of Care Interventions Electrical Stimulation,Gait Training,Hot Pack/Cold Pack,Manual Therapy,Neuro Re-education,Patient/ Caregiver Education,Therapeutic Activities, Therapeutic Exercise,Ultrasound Other Interventions taping, cupping, IASTM PT Services Indicated Yes Treatment Frequency and 1-2x/wk for 4 weeks Duration These treatments will address the objective and functional deficits as defined above. The patient will be advanced safely and appropriately in order for the patient to progress towards his/her prior level of function. Additional exercises will be introduced and as well as a comprehensive home exercise program upon discharge, if needed, ?to ensure carryover of functional gains achieved in the clinic. This treatment plan has been reviewed and agreement upon by the patient.
--- NOTE | 2022-08-04 11:25 | PTOPDC ---
Assessment and note entered by Milo Kolb, PT Evaluation Information Assessment Status Discharge Diagnosis JENNIFER shoulder pain Subjective Information Patient overall she is a lot better able to lay on the R side to sleep and pain at worst 2/10. Patient knows she needs to keep up with her exercises. Reported Pain Level Pain Score 1: Self Report Assessment PT Clinical Summary Jayda is a 26 year old female coming into the clinic with a diagnosis of JENNIFER shoulder pain. Patient was evaluated on 06/09/22 and has attended 12 sessions. The patient has met her pain and strength goals, but still has tightness in her pec major. Patient is okay with discharge from physical therapy while keeping her HEP routine as she wants a break from therapy. Plan of Care PT Services Indicated No
== END 2022-08-05 10:38 | disposition home or self-care (01) ==
LOC: ANHPT 11:00
PROVIDERS: PCP Physician Assistant; Visit Provider Physician Assistant Surgical
DX: M75.32 Calcific tendinitis of left shoulder (principal); M75.31 Calcific tendinitis of right shoulder; M54.9 Dorsalgia, unspecified
CPT/HCPCS: 97110; 97140; 97161

== ENCOUNTER 2024-11-16 10:21 | Outpatient (CLI) | payer BC, SELFPAY ==
--- NOTE | 2024-11-16 10:32 | ECG_ITS ---
Test Date: 2024-11-16 10:46:29 Measurements Intervals [place] Rate: 87 P: 37 WA: 149 QRS: 42 QRSD: 84 T: 34 QT: 344 QTc: 415 Interpretive Statements SINUS RHYTHM MINIMAL Q WAVES- INFERIOR LEADS BASELINE ARTIFACT- I, II, III, AVR, AVL, AVF, V1-V6 BORDERLINE ECG No previous ECG available for comparison Electronically Signed On 11-16-2024 11:13:04 CDT by Britton Alarcon D.O.
--- OUTSIDE RECORDS SUMMARY | 2024-11-16 10:35 | XMS_ITS | Clinical Summary ---
Author Organization [facility] Address [address] [place] [address] Phone Care Team Providers Care Extractive Metallurgist Name Role Phone MindyTyler Carloz DHALIWAL Primary Care Provider Allergies No known active allergies Medications fluticasone (FLONASE) 50 MCG/ACT Suspension 1-2 Sprays by Nasal route daily. Use in each nostril as directed. 1 Bottle 06/21/2017 Active Active Problems No known active problems Immunizations Immunization Administration Dates Next Due Covid-19, Mrna, Lnp-s, PF, 1 00 mcg/0.5 mL Dose (Moderna) 04/28/2020,04/01/2020 Influenza Vaccine, Quadrivalent, PF 12/29/2022,1 ,05/19/2020 Influenza,Split Virus,Trivalent,Injectable,PF 11/29/2023 Social History Tobacco Use Types Packs/Day Years Used Date Smoking Tobacco: Never Smokeless Tobacco: Never Alcohol Use Standard Drinks/Week Comments No 0 (1 standard drink = 0.6 oz pur e alcohol) Comments No Sex and Gender Information Value Date Recorded Sex Assigned at Not on file Legal Sex Female 9:26 PM CDT Gender Identity Not on file Sexual Orientation Not on file Last Filed Vital Signs Vital Sign Reading Time Taken Comments Blood Pressure 120/84 06/21/2017 8:00 AM CDT Pulse 88 06/21/2017 8:00 AM CDT Temperature 36.6 C (97.9 F) 06/21/2017 8:00 AM CDT Respiratory Rate 16 06/21/2017 8:00 AM CDT Oxygen Saturation 97% 06/21/2017 8:00 AM CDT Inhaled Oxygen Concentration - - Weight 121.1 kg (267 lb) 06/21/2017 8:00 AM CDT Height 172.7 cm (5' 8) 06/21/2017 8:00 AM CDT Body Mass Index 40.6 06/21/2017 8:00 AM CDT Plan of Treatment Health Maintenance Due Date Last Done Comments Hepatitis C Virus (HCV) Screening 1994 TdaP Immunization 1994 Hepatitis B Immunization (1 of 3 - 19+ 3-dose series) 2013 Human Papillomavirus (HPV) Immunization (1 - 3-dose SCDM series) 2021 SARS-COV-2 Immunization ( season) 2023 07/08/2021, 04/28/2020, 04/01/2020 Influenza Immunization (#1) 11/19/202411/19, 12/29/2022, 01/14/2022, Additional history exists Respiratory Syncytial Virus (RSV) Immunization (Adult) (1 - 1-dose 75+ series) 2069 Meningococcal Immunization (ACWY) Aged Out No longer eligible based on patient's age to complete this topic Pneumococcal Immunization Combined Aged Out No longer eligible based on patient's age to complete this topic Rotavirus Immunization Aged Out No lo nger eligible based on patient's age to complete this topic Care Teams Extractive Metallurgist Relationship Specialty Start Date End Date Tyler Guillen DO [address] [place] [address] PCP - General Internal Medicine 06/21/17
--- OUTSIDE RECORDS SUMMARY | 2024-11-16 10:35 | XMS_ITS | Patient Health Record ---
Author Organization [facility] Address [address] [facility] [address] [place] [address] Care Team Providers Care Prom Burn Off Operator Name Role Phone Leela Garcia Unavailable [phone] Reason For Referral No Information Medications Medication SIG (Take, Route, Frequency, Duration) Notes Start Date End Date Status Norethindrone Acet-Ethinyl Est 1-20 MG-MCG Tablet Oral Activ e Cyclobenzaprine HCl 10 MG Tablet Oral Active Rosuvastatin Calcium 10 MG Tablet Oral Active Terbinafine HCl 250 MG Tablet Oral Active predniSONE 20 MG Tablet Oral Active Social History Social History Additional Details Category Social Info Options Details Migrated Social History Migrated Social History Tobacco Years: Never smoker 03/31/2023 Plan Of Treatment No Information Insurance Providers Payer Name Payer Address Payer Phone Subscriber Number Group Number Insured Name Patient Relationship to Insured Coverage Start Date Coverage End Date [facility] [address] [place] [address] [id number] SHALONDA ALLEN Self - patient is the insured
--- OUTSIDE RECORDS SUMMARY | 2024-11-16 10:35 | XMS_ITS | Clinical Summary ---
Author Organization [facility] Address [facility] [place] [address] Care Team Providers Care Radial Drill Press Operator For Plastic Name Role Phone None, Provider MD Primary Care Provider Unavaila ble Allergies Active Allergy Reactions Criticality Noted Date Comments Metformin Diarrhea Low 03/30/2020 Medications No known medications Active Problems No known active problems Social History Tobacco Use Types Packs/Day Years Used Date Smoking Tobacco: Never Smokeless Tobacco: Never Alcohol Use Standard Drinks/Week Comments Never 0 (1 standard drink = 0.6 oz pur e alcohol) AUDIT-C Answer Date Recorded Q1: How often do you have a drink containing alc ohol? Never 03/30/2020 Average Number of Drinks Not on file 021 Frequency of Binge Drinking Not on file 03/21 Comments No Sex and Gender Information Value Date Recorded Sex Assigned at Not on file Legal Sex Female 8:51 PM CDT Gender Identity Not on file Sexual Orientation Not on file Last Filed Vital Signs Vital Sign Reading Time Taken Comments Blood Pressure 141/93 03/30/2020 6:15 PM CUSTOMER RELATIONS REPRESENTATIVE Pulse - - Temperature - - Respiratory Rate - - Oxygen Saturation 100% 03/30/2020 6:15 PM CUSTOMER RELATIONS REPRESENTATIVE Inhaled Oxygen Concentration - - Weight - - Height - - Body Mass Index - - Plan of Treatment Health Maintenance Due Date Last Done Comments Cervical Cancer Screening Pa p Smear (Age 21 to 29) Every 3 Years 1994 Cervical Cancer Screening 1994 Annual Physical 1997 Hepatitis C 2012 DTaP, Tdap and Td Vaccines ( 1 - Tdap) 2013 Hepatitis B Vaccines (1 of 3 - 19+ 3-dose series) 2013 HPV Vaccines (1 - 3-dose SCD M series) 2021 COVID-19 Vaccine (2023-2 5 season) 2023 Meningococcal B Vaccine Aged Out No l onger eligible based on patient's age to complete this topic Meningococcal Vaccine Aged Out No heather kandi eligible based on patient's age to complete this topic Pneumococcal Vaccine: Pediat rics (0 to 5 Years) and At-Risk Patients (6 to 49 Years) Aged Out No longer eligible b ased on patient's age to complete this topic RSV Immunizations Under 20 Months Aged Out No longer eligible based on patient's age to complete this topic Insurance [employer] Care Teams Radial Drill Press Operator For Plastic Relationship Specialty Start Date End Date None, Provider, PCP - General 03/30/20
[2024-11-16 12:22] LABS: Hematocrit 38.9 % (37.0-47.0); Hemoglobin 12.1 g/dL (12.0-15.0); Immature Granulocyte Percent A 0.4 % (0-0.5); Lymphocytes Absolute Auto 3.35 K/mm3 (0.9-3.2); Mean Corpuscular HGB Conc 31.1 g/dl (32-36); Mean Corpuscular Hemoglobin 25.6 pg (26-34); Mean Corpuscular Volume 82.4 fl (80-100); Nucleated Red Blood Cells Absolute Auto 0.000 K/mm3 (0.0-0.012); Nucleated Red Blood Cells Perc 0.0 % (0.0-0.2); Platelet Count Result 350 k/mm3 (150-375); Red Blood Count 4.72 M/mm3 (4.2-5.4); White Blood Count 10.6 K/mm3 (4.5-10.0)
== END 2024-11-16 10:22 | disposition home or self-care (01) ==
LOC: ANHSURGERY 10:28
PROVIDERS: PCP Internal Medicine; Visit Provider Surgery
DX: Z01.818 Encounter for other preprocedural examination (principal); K60.2 Anal fissure, unspecified; E78.00 Pure hypercholesterolemia, unspecified
CPT/HCPCS: 36415; 85025; 93005

== ENCOUNTER 2024-11-21 01:17 | Day surgery (SDC) | payer BC, SELFPAY ==
[2024-11-13 08:33] VITALS: BMI 45.7
--- NOTE | 2024-11-13 08:33 | PC.NURSE ---
Addendum entered by Vinay Christiansen RN 11/13/24 08:56: Patient says she was instructed already by office to take laxatives and enemas and clear liquids only the day before surgery. Original Note: Report to the Outpatient Waiting Room, entrance under the green pavilion located off [facility], at time _0700_ on date _[id number]_. Planned Procedure Time: _0900_.? Time changes happen often and if your time is changed the preop area will call you the afternoon before. - You and your visitor will be asked to self-screen and do not enter if you have any COVID symptoms. Please call surgeon if you need to reschedule. - A mask is optional within the hospital at this time. Patients may have clear liquids (water, carbonated beverages, clear teas, apple juice) until 3 hours prior to surgery with a maximum of 20 ounces. - No food from midnight until time of surgery and no smoking, or chewing tobacco (or any form of nicotine). No chewing gum, candy or mints. Take only the following medications with a SIP of water on the morning of surgery: DO NOT STOP ANY OF YOUR OTHER PRESCRIPTION MEDICATIONS PRIOR TO SURGERY EXCEPT THE FOLLOWING Hold all vitamins and supplements for 3 days per anesthesiologist. Medications to discontinue per physician Date to take last skea___[id number]____ Please no make-up, nail mongolian, hairspray, perfume, deodorant, or body powder the day of surgery.? No jewelry (including any body piercings) or valuables the day of surgery, leave them at home.? Please take a shower or bath the night before, or the morning of, surgery with an antibacterial soap.? Wear comfortable, loose fitting clothing.? - Jewelry must be removed prior to entering the operating room.? Rings and piercings that are not removed may be cut off. - The hospital will not accept responsibility for valuables.? - Please leave all valuables, including medications, at home the day of surgery. If you are going home after surgery, a licensed motor bus driver must drive you home.? - NO public transportation without another adult if you receive anesthesia. - We recommend that an adult stay with you for 24 hours following discharge. - We also recommend that you do not drive, make important decision, drink alcoholic beverages, or take any drugs that were not prescribed by your health care provider for at least 24 hours after your discharge time. Follow any additional instructions given to you from your surgeon. Telephone instructions given to __Tara___and asked if any additional questions and then verbalized understanding. Patient advised to call surgeon office or pre surgery nurse liaison [phone] if any additional questions.
[2024-11-21] VITALS (7 sets, daily range): BP systolic 107–154; BP diastolic 69–93; PULSE 88–103; RESP 15–22; TEMP 36.4–36.7; O2SAT 97–100; BMI 47.5
--- OUTSIDE RECORDS SUMMARY | 2024-11-21 01:20 | XMS_ITS | Patient Health Record ---
Author Organization [facility] [employer] [facility] Address [address] [place] [address] Care Team Providers Care Staff Cytotechnologist Name Role Phone Leela Garcia Unavailable [phone] Reason For Referral No Information Medications Medication [...] Insured Coverage Start Date Coverage End Date [facility] [place] [address] [id number] SHALONDA ALLEN Self - patient is the insured
--- OUTSIDE RECORDS SUMMARY | 2024-11-21 01:20 | XMS_ITS | Clinical Summary ---
Author Organization [facility] Address [address] [place] [address] Phone Care Team Providers Care Paper Reclaiming Machine Operator Name Role Phone MindyTyler Carloz DHALIWAL Primary Care Provider [phone] Allergies No known active allergies Medications fluticasone [...] Immunization (1 - 3-dose SCDM series) 2021 Influenza Immunization (#1) 11/19/202411/19, 12/29/2022, 01/14/2022, Additional history exists SARS-COV-2 Immunization ( season) 2024 07/08/2021, 04/28/2020, 04/01/2020 Respiratory Syncytial Virus (RSV) Immunization (Adult) (1 - 1-dose 75+ series) 2069 Meningococcal Immunization (ACWY) Aged Out No longer eligible based on patient's age to complete this topic Pneumococcal Immunization Combined Aged Out No longer eligible based on patient's age to complete this topic Rotavirus Immunization Aged Out No lo nger eligible based on patient's age to complete this topic Care Teams Paper Reclaiming Machine Operator Relationship Specialty Start Date End Date Tyler Guillen DO [address] [place] [address] PCP - General Internal Medicine 06/21/17
[2024-11-21 07:51] LABS: BEDSIDEPREGUCG Negative (Negative)
[2024-11-21] MEDS: ACETAMINOPHEN 500 MG TABLET 1000 MG PO (07:58)
[2024-11-21] MEDS: LACTATED RINGERS 1,000 ML 30 ML IV CONT (08:08)
[2024-11-21] MEDS: KETOROLAC 15 MG/ML VIAL (*BKC) IV PUSH (08:10)
--- NOTE | 2024-11-21 08:43 | WPDHPUPDATE1 ---
History and Physical Update Update Date/Time: 11/21/24 08:43 History and Physical has been reviewed, including an updated exam of the patient. There are NO changes in the patient's condition. Risks, benefits, and alternatives have been discussed and questions answered. Patient agrees to proceed with procedure.
--- NOTE | 2024-11-21 08:51 | WPDANESEPPF ---
Anes - Initial Pre Proc Eval Procedure: Operation Date: 11/21/24 09:00 Proposed Procedures p Lateral Internal Sphincterotomy - Fredis Hill MD Date/Time: 11/21/24 08:51 Surgeon: Fredis Hill MD Pre Op Diagnosis: anal fissures Patient Data Age: 28 Gender: F Height: 1.73 m Weight: 141.8 kg Last Vital Signs Temp 36.7 C 11/21/24 07:20 Pulse 91 11/21/24 07:20 Resp 16 11/21/24 07:20 BP 132/84 11/21/24 07:20 Pulse Ox 100 11/21/24 07:20 O2 Del Method Room Air 11/21/24 07:20 Allergies Allergy/AdvReac Type Severity Reaction Status Date / Time metformin AdvReac Unknown Diarrhea Verified 11/21/24 07:39 Home Medications ?Medication ?Instructions ?Recorded ?Confirmed ?Type cholecalciferol (vitamin D3) 25 25 mcg PO DAILY 10/29/20 11/21/24 History mcg (1,000 unit) capsule multivitamin (Daily Multi-Vitamin 1 tablet PO DAILY 10/29/20 11/21/24 History tablet) omeprazole 40 mg capsule,delayed 40 mg PO DAILY 02/02/22 11/21/24 History release rosuvastatin 10 mg tablet 10 mg PO DAILY #90 tabs 05/17/24 11/21/24 Rx terbinafine HCl 250 mg tablet 250 mg PO DAILY #90 tabs 05/18/24 11/13/24 Rx norethindrone acetate 1 mg-ethinyl 1 tablet PO DAILY #84 tabs 07/23/24 11/21/24 Rx estradiol 20 mcg tablet (Junel) Laboratory Tests 11/21/24 07:20 POC Urine HCG, Qual Negative (Negative) Patient hx anesthesia problems: none and other (motion sickness) Family hx anesthesia problems: none Results Review: All pre-operative results and documents have been reviewed as part of the pre-operative evaluation. [facility] Past Medical History Medical History GERD (gastroesophageal reflux disease) Obesity PCOS (polycystic ovarian syndrome) High cholesterol Surgical History Surgical History Bevier teeth removed 2011 Family History Family History Sibling Family history of mental disorder Patient's sister is in good health Patient's brother is in good health Depression Heart disease Family history of hypercholesterolemia Eosinophilic granulomatosis with polyangiitis (EGPA) Father Depression Family history of elevated blood lipids Family history of hypercholesterolemia Mother Hypertension Grandparent Hypertension Family history of elevated blood lipids Family history of dementia, Onset Age: 87 Family history of renal failure Family history of hypercholesterolemia Family history of primary malignant neoplasm of liver Family history of congestive heart failure Family history of osteoporosis Family history of osteoarthritis Social History Social History Smoking status: Never smoker Second hand tobacco smoke exposure: No Alcohol intake: never Substance use: never Substance use type: does not use Lack of Transportation: No Lack of Food: Never True Current Housing: I Have Housing Concerned About Future Housing: No Difficulty Paying Gas/Electric Bills: No Difficulty Paying for Meds: No Currently Unemployed: No Education: Trade/Vocational Certificate Difficulty w/ Childcare or Family Care: No Living arrangements: with family Gender identity (if verbalized by the patient): Female Spiritual care concerns: No Anes - Eval Final PreProcedure Day of Procedure 11/21/24 08:51 Patient weight: morbidly obese Heart: regular rate and rhythm Lungs: clear to auscultation Airway: Mallampati scale class II Neurological: alert and oriented Last oral intake: >/= 8 hours ASA classification: III Emergent: no Anesthetic plan: proceed Anesthesia type and monitoring: general ETT and standard monitoring Results Review: All pre-operative results and documents have been reviewed as part of the pre-operative evaluation. Informed Consent: The patient's anesthetic plan and its attendant risks and benefits were discussed with the patient/family/POA. Questions were solicited and answers provided to the satisfaction of the patient/family/POA.
[2024-11-21] MEDS: SCOPOLAMINE 1 MG PATCH 1 PATCH TRANSDERM (09:00)
[2024-11-21] MEDS: ceFAZolin 3 GM/D5W 100 ML 100 ML IVPB (09:03)
[2024-11-21] MEDS: BUPIVACAINE/EPINEPHRINE 0.5% 50 ML VIAL 40 ML INFILTRATE (09:27)
--- NOTE | 2024-11-21 09:46 | P.OP_ITS ---
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 She is taken to surgery now for sphincterotomy Findings Easily seen, well-defined, posterior midline anal fissure Description of Procedure Patient was taken to surgery and induced into general anesthesia. She was then placed in prone anita-knife position. The buttocks were taped apart. Prep and drape was carried out. The anorectal exam was carried out with the small Hill- Arellano anoscope. Findings were as above. Local anesthetic was infiltrated 20 cc deep subdermal and intersphincteric. Medium Hill-Arellano was introduced. The left lateral internal sphincter was easily palpable. A small incision was made over the edge of the internal sphincter in this position. A curved clamp was then used to dissect the lower 3rd of the internal sphincter muscle and elevated on the clamp. I then used the cautery to divide the sphincter muscle. This was bloodless. I then held some pressure for a couple of minutes. All was dry and looked good. We dressed the rectum with Xeroform gauze and fluffs. Patient was then returned to a supine position, awakened and extubated. She transferred to recovery in good condition. Sponge needle counts were correct x2. Estimated Blood Loss -2 Drains No Packing No Pathology None sent Complications None Condition Stable Disposition PACU [facility] Billing Surgery - Charge Forward: Surgery Billing (Left lateral internal sphincterotomy)
== END 2024-11-21 11:10 | disposition home or self-care (01) ==
PROVIDERS: PCP Internal Medicine; Visit Provider Surgery
PROC: (CPT 46080; principal; 2024-11-21 09:00)
DX: K60.2 Anal fissure, unspecified (principal); E66.01 Morbid (severe) obesity due to excess calories; Z68.42 Body mass index [BMI] 45.0-49.9, adult
CPT/HCPCS: 46080; A9270; J0690; J1100; J1200; J1885; J2003; J2250; J2405; J2704; J3010; J7120